=== PATIENT | female | born 1955 | race Hispanic/Latino ===

== ENCOUNTER 2017-08-02 16:00 | Outpatient (AMBR) | payer MEDICAID, SELFPAY ==
--- NOTE | 2017-06-20 14:23 | PT.OIERPT ---
PT OP Initial Eval Patient Information Visit Reasons: Hip pain Medical Diagnosis: M15.9 Treatment Dx #1: Bilateral Hip Pain Treatment Dx #2: Bilateral Hip Mobility Deficits Start of Care: 06/20/17 Date of Onset: 2 years ago Initial Assessment Subjective Pt is a 62 y/o female c/o chronic hip pain 10/10 L>R started 2 years ago. Pt's recent xray found some arthritis. Pt currently has difficulty with walking, standing, lifting, recreational activities, self care, and cooking. Pt further reports of back pain leading to BLE numbness and tingling down the legs. Objective Left Hip AROM Flexion: 20 deg Abduction: 35 deg Internal Rotation: 10 deg External Rotation: 15 deg Extension: 10 deg Right Hip AROM Flexion: 50 deg Abduction: 45 deg Internal Rotation: 20 deg External Rotation: 20 deg Extension: 15 deg Hip MMTs Bilateral Glute Med: 3-/5 Bilateral Glute Max: 3-/5 Gait Observation: antaligc with decrease stance time on L LE; decrease stride length with minimal swing through Assessment Pt demonstrate bilateral hip pain L>R leading to decline function and difficulty with ADLs. Pt will benefit from physical therapy to increase strength, mobility, and work on functional tasks. 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
--- NOTE | 2017-06-20 14:31 | PTNOTE_ITS ---
PT OP Initial Eval Patient Information Visit Reasons: Hip pain Medical Diagnosis: M15.9 Treatment Dx #1: Bilateral Hip Pain Treatment Dx #2: Bilateral Hip Mobility Deficits Start of Care: 06/20/17 Date of Onset: 2 years ago Initial Assessment Subjective Pt is a 62 y/o female c/o chronic hip pain 10/10 L>R started 2 years ago. Pt's recent xray found some arthritis. Pt currently has difficulty with walking, standing, lifting, recreational activities, self care, and cooking. Pt further reports of back pain leading to BLE numbness and tingling down the legs. Objective Left Hip AROM Flexion: 20 deg Abduction: 35 deg Internal Rotation: 10 deg External Rotation: 15 deg Extension: 10 deg Right Hip AROM Flexion: 50 deg Abduction: 45 deg Internal Rotation: 20 deg External Rotation: 20 deg Extension: 15 deg Hip MMTs Bilateral Glute Med: 3-/5 Bilateral Glute Max: 3-/5 Gait Observation: antaligc with decrease stance time on L LE; decrease stride length with minimal swing through Assessment Pt demonstrate bilateral hip pain L>R leading to decline function and difficulty with ADLs. Pt will benefit from physical therapy to increase strength , mobility, and work on functional tasks. 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
--- NOTE | 2017-07-18 11:44 | PT.ODAYNRPT ---
PT Outpatient Daily Note Date of Service: July 18, 2017 OP Daily Note Visit Reasons: KNEES Outpatient Physical Therapy Treatment Date: 07/18/17 Subjective: Pt still notice hip pain L>R. The cold weather makes her pain worse. Objective: Please see flow chart for list of ther ex performed Assessment: after 5 mins on sci-fit Pt's hip started to hurt and and asked to stop. Pt then perform ther ex however without any resistance and demonstrated difficulty with pain with all exercises. Pt was given frequent rest break throughout PT session Plan: Continue with PT Length of Time (minutes) of Treatment: 30 Minutes Office Procedures PT Procedures OP PT Eval Mod Complex 30 minutes: Yes PT Procedures PT Date of Service: 07/18/17 Therapeutic Exercise 30 minutes: Yes
--- NOTE | 2017-07-23 08:53 | PT.ODAYNRPT ---
PT Outpatient Daily Note Date of Service: July 23, 2017 OP Daily Note Visit Reasons: KNEES Outpatient Physical Therapy Treatment Date: 07/23/17 Subjective: Pt's sore from previous therapy session. Pt still has hip pain with walking. Objective: Please see flow chart for list of ther ex performed Assessment: no resistance used today; added different plane of motions in closed chain which she was able to do, however, fatigue Plan: Continue with PT Length of Time (minutes) of Treatment: 30 Minutes Office Procedures PT Procedures OP PT Eval Mod Complex 30 minutes: Yes PT Procedures PT Date of Service: 07/18/17 Therapeutic Exercise 30 minutes: Yes PT Procedures PT Date of Service: 07/23/17 Therapeutic Exercise 30 minutes: Yes
--- NOTE | 2017-07-31 09:04 | PT.ODAYNRPT ---
PT Outpatient Daily Note Date of Service: July 31, 2017 OP Daily Note Visit Reasons: KNEES Outpatient Physical Therapy Treatment Date: 07/31/17 Subjective: Pt mention that her hip and knees still hurts. Pt notice no change in her overall strength. Objective: Please see flow chart for list of ther ex performed Assessment: tolerate exercises; exhausted after therapy session due to added resistance. Plan: Continue with PT Length of Time (minutes) of Treatment: 30 Minutes Office Procedures PT Procedures OP PT Eval Mod Complex 30 minutes: Yes PT Procedures PT Date of Service: 07/18/17 Therapeutic Exercise 30 minutes: Yes PT Procedures PT Date of Service: 07/23/17 Therapeutic Exercise 30 minutes: Yes PT Procedures PT Date of Service: 07/31/17 Therapeutic Exercise 30 minutes: Yes
--- NOTE | 2017-08-02 16:33 | PT.ODAYNRPT ---
PT Outpatient Daily Note Date of Service: August 02, 2017 OP Daily Note Visit Reasons: KNEES Outpatient Physical Therapy Treatment Date: 08/02/17 Subjective: pt c/o increased low back pain upon visit today due to a lot of cleaning around the house. Objective: see flow sheet. Assessment: as pt was getting off the bike she had a lot of discomfort due to increase in pain. performed mini squats with good posture and noted good hip flexion and knees behind toes. pt had to stop and take breaks in between due to pain. advised pt to rest at home due to increased pain. Plan: continue POC per PT. Pain Present Currently: Yes Length of Time (minutes) of Treatment: 30 Minutes Office Procedures PT Procedures PT Date of Service: 08/02/17 Therapeutic Exercise 30 minutes: Yes PT Procedures OP PT Eval Mod Complex 30 minutes: Yes PT Procedures PT Date of Service: 07/18/17 Therapeutic Exercise 30 minutes: Yes PT Procedures PT Date of Service: 07/23/17 Therapeutic Exercise 30 minutes: Yes PT Procedures PT Date of Service: 07/31/17 Therapeutic Exercise 30 minutes: Yes
== END 2017-08-02 17:00 | disposition home or self-care (01) ==
PROVIDERS: PCP Family Medicine; Referring Provider Family Medicine; Visit Provider Family Medicine
DX: M25.562 Pain in left knee (principal); M25.561 Pain in right knee; M54.5 Low back pain; M25.552 Pain in left hip; M25.551 Pain in right hip
CPT/HCPCS: 97110; 97162